=== PATIENT | female | born 1955 | race Caucasian/White ===

== ENCOUNTER 2023-02-10 05:00 | Emergency (ER) | payer OTHER ==
[~2023-02-10] VITALS: Ht 165.1 cm; Wt 90.7 kg
[2023-02-10 05:15] VITALS: BP 163/85
--- NOTE | 2023-02-10 05:27 | NUR ---
PT ANAT PAIZ. TAKEN TO BED 11
[2023-02-10] MEDS ORDERED: MORPHINE SULFATE 2 MG/ML SYR IM STA (05:39)
--- NOTE | 2023-02-10 05:46 | NUR ---
X-Ray at bedside.
[2023-02-10] MEDS ORDERED: NACL 0.9% 1,000 ML IV ONE (05:55)
--- NOTE | 2023-02-10 05:59 | NUR ---
Dr. Ramirez examining patient.
[2023-02-10 06:06] LABS: BASOPHILS % (AUTO) 0.2 % (0.0-2.0); EOSINOPHILS # (AUTO) 0.1 K/uL (0-0.4); EOSINOPHILS % (AUTO) 0.6 % (0.0-4.0); HEMATOCRIT 36.4 % (36-48); HEMOGLOBIN 12.4 g/dL (12.0-16.0); LYMPHOCYTES # (AUTO) 0.7 K/uL (2.5-16.5); LYMPHOCYTES % (AUTO) 7.4 % (20.5-51.1); MEAN CORPUSCULAR HEMOGLOBIN 33 pg (27-31); MEAN CORPUSCULAR HGB CONC 34 g/dL (33-37); MEAN CORPUSCULAR VOLUME 96.7 fL (80-94); MONOCYTES # (AUTO) 0.5 K/uL (0.8-1.0); MONOCYTES % (AUTO) 4.9 % (1.7-9.3); NEUTROPHILS # (AUTO) 8.5 K/uL (1.8-7.7); NEUTROPHILS % (AUTO) 86.9 % (42.2-75.2); PLATELET COUNT (AUTO) 128 K/uL (140-450); RED BLOOD CELL COUNT(AUTO) 3.77 MIL/uL (4.20-5.40); WHITE BLOOD COUNT (AUTO) 9.8 K/uL (4.8-10.8)
[2023-02-10 06:26] LABS: ALBUMIN 3.5 g/dL (3.4-5.0); ANION GAP 8.2 (8-16); CARBON DIOXIDE 29.9 mmol/L (21-32); CREATININE 0.6 mg/dL (0.6-1.3); POTASSIUM 3.1 mmol/L (3.5-5.1); TOTAL BILIRUBIN 0.3 mg/dL (0.0-1.0)
[2023-02-10 07:12] VITALS: BP 163/85
--- NOTE | 2023-02-10 07:49 | NUR ---
PATIENT RETURNED FROM CT. FAMILY AT BEDSIDE.
[2023-02-10] MEDS ORDERED: TRAM50TA3 PO (08:37)
[2023-02-10] MEDS ORDERED: IBUP-2213 PO (08:37)
[2023-02-10] MEDS ORDERED: LID5T TP (08:37)
== END 2023-02-10 09:10 | disposition home or self-care (01) ==
LOC: MED 05:00
DX: S32.059A Unspecified fracture of fifth lumbar vertebra, initial encounter for closed fracture (principal); S30.1XXA Contusion of abdominal wall, initial encounter; Z79.899 Other long term (current) drug therapy; Z79.1 Long term (current) use of non-steroidal anti-inflammatories (NSAID); V89.2XXA Person injured in unspecified motor-vehicle accident, traffic, initial encounter; Y93.89 Activity, other specified; Y92.410 Unspecified street and highway as the place of occurrence of the external cause; Y99.8 Other external cause status
CPT/HCPCS: 36415; 70450; 71045; 71260; 72125; 72170; 74177; 80053; 85025; 96361; 96374; 99285; J2270; J7030; Q0092